=== PATIENT | male | born 1965 | race Caucasian/White ===

== ENCOUNTER 2016-09-13 06:36 | Day surgery (SDC) | payer OTHER ==
[~2016-09-13] VITALS: Ht 167.6 cm; Wt 79.5 kg
[~2016-09-13 06:36] MED LIST: ADDE30TA PO; AMOX400S3 PO; LORTA5 PO; MOTR200T PO; TEMA15 PO; VITA500C PO
[2016-09-13 06:53] VITALS: BP 139/98; PULSE 75; RESP 20; TEMP 98.2; O2SAT 98
[2016-09-13] MEDS ORDERED: SODIUM CHLORIDE 0.9% 1000 ML IV SCH (07:15)
[2016-09-13] MEDS ORDERED: ceFAZolin 2 GM PREMIX 50 ML - implanted port removal IV SCH (07:15)
[2016-09-13 07:44] LABS: APTT (PATIENT) 26.2 SEC (24.3-30.1); INTERNATIONAL NORMALIZED RATIO 0.9 RATIO; PROTHROMBIN TIME - PATIENT 10.3 SEC (9.8-11.6)
[2016-09-13] MEDS ORDERED: MIDAZOLAM HCL 5 MG/5 ML VIAL ONE (08:01)
[2016-09-13] MEDS ORDERED: fentaNYL CITRATE 250 MCG/5 ML AMP ONE (08:02)
[2016-09-13] MEDS ORDERED: LIDOCAINE 1%/EPINEPHrine 1:100,000 SOLN 20 ML VIAL ONE (08:16)
[2016-09-13 08:45] VITALS: BP_SYST 120; BP_SYST 124; BP_DIAS 81; PULSE 81; PULSE 83; RESP 20; TEMP 97.9; O2SAT 95; O2SAT 96
[2016-09-13 09:00] VITALS: BP 124/85; PULSE 83; RESP 20; O2SAT 94
[2016-09-13] MEDS ORDERED: SODIUM CHLORIDE 0.9% FLUSH 5 ML FLUSH IVF PRN ×2 (09:00)
--- NOTE | 2016-09-13 09:01 | PD.RAD ---
Post Procedure Progress Note Pre Procedure Diagnosis: (1) Lymphoma Post Procedure Diagnosis: (1) Lymphoma Procedure Date: Sep 13, 2016 Supervising Radiologist: John Velazco Proceduralist/Assist: Judah Corona RT(R), RT Yassine(R) Anesthesia: Conscious Sedation Plan of Activity Patient to Unit: R[facility] Patient Condition: Good See PACS Report for procedural detail/treatment Central Venous Access Device Procedure 1 Right Internal Jugular Infusaport Removal single lumen John Velazco MD Sep 13, 2016 09:01
--- NOTE | 2016-09-13 09:23 | RADRPT ---
EXAM DATE/TIME: 09/13/2016 07:38 [facility] COMPARISON: No previous studies available for comparison. INDICATIONS : Patient presents with a history of lymphoma and is in need of port removal. MEDICAL HISTORY : Splenomegaly HTN Gout Hemolyric anemia SURGICAL HISTORY : Splenectomy Tonsillectomy Bone marrow biopsy ENCOUNTER: Subsequent ACUITY: 4-6 months PAIN SCORE: 0/10 LOCATION: n/a SEDATION TIME: 30 minutes 1.) 3 mg midazolam (Versed) IV 2.) 150 mcg fentanyl (Sublimaze) IV Prophylactic antibiotics were administered with appropriate pre-procedure timing. Vancomycin within 2 hrs of procedure, Ancef (or alternative) within 1 hr of procedure. PROCEDURE : 1. Removal of Mefjvc-w-[id number]. 2. Conscious sedation with continuous EKG and oximetry monitoring. The risk, benefits and potential complications of [id number]-[id number] removal were discussed. Written conse nt was obtained. The patient was placed supine. The chest wall was prepped in sterile fashion. Full sterile techniqu e was used, including cap, mask, sterile gloves and gown, and a large sterile sheet. Hand hygiene an d 2% chlorhexidine and/or Betadine/alcohol prep was utilized per protocol for cutaneous antisepsis. The skin and subcutaneous tissues were infiltrated with local anesthetic solution. A small incision w as made, the subcutaneous pocket was opened. The port was dissected from the subcutaneous tissues and easily removed in one piece. The pocket incision was closed with subcuticular Vicryl suture. Steri -Strips were applied. Conscious sedation was performed with the prescribed dosages and duration as above. The patient tole rated the procedure well and there were no complications. EKG and oximetry remained stable throughou t the procedure. The patient was sent to post anesthesia recovery in stable condition. CONCLUSION: Uncomplicated port removal as above. John Velazco MD on September 13, 2016 at 9:18 Board Certified Radiologist. This report was verified electronically.
[2016-09-13 09:30] VITALS: BP 117/89; PULSE 74; RESP 20; O2SAT 94
[2016-09-13 10:00] VITALS: BP 113/72; PULSE 76; RESP 20; O2SAT 94
[2016-09-13 10:30] VITALS: BP 110/75; PULSE 73; RESP 20; O2SAT 96
== END 2016-09-13 10:45 | disposition home or self-care (01) ==
LOC: HROP 06:36 → HRIP 06:37 → HROP 10:45
PROVIDERS: ATTEND Internal Medicine Hematology & Oncology
DX: Z46.89 Encounter for fitting and adjustment of other specified devices (principal); Z85.72 Personal history of non-Hodgkin lymphomas
CPT/HCPCS: 36590; 85610; 85730; J0690; J2250; J3010; J7030

== ENCOUNTER 2016-09-24 10:24 | Day surgery (SDC) | payer OTHER ==
[~2016-09-24] VITALS: Ht 167.6 cm; Wt 79.5 kg
[~2016-09-24 10:24] MED LIST changes: -ADDE30TA PO; -AMOX400S3 PO; -LORTA5 PO; -VITA500C PO
[2016-09-24 10:31] VITALS: BP 144/106; PULSE 74; RESP 20; TEMP 98.1; O2SAT 97
[2016-09-24] MEDS ORDERED: ceFAZolin 2 GM PREMIX 50 ML IV ONE (11:00)
[2016-09-24] MEDS ORDERED: fentaNYL CITRATE 250 MCG/5 ML AMP ONE (11:04)
[2016-09-24] MEDS ORDERED: MIDAZOLAM HCL 5 MG/5 ML VIAL ONE (11:04)
[2016-09-24] MEDS ORDERED: LIDOCAINE 1%/EPINEPHrine 1:100,000 SOLN 20 ML VIAL ONE (11:14)
--- NOTE | 2016-09-24 11:46 | PD.RAD ---
Post Procedure Progress Note Pre Procedure Diagnosis: (1) Hematoma of chest wall Post Procedure Diagnosis: (1) Hematoma of chest wall Procedure Date: Sep 24, 2016 Supervising Radiologist: Bobby Lopez JR Proceduralist/Assist: Carmela Denney, RT(R)(CV), Alyse Harrell RT(R)() Anesthesia: Conscious Sedation Plan of Activity Patient to Unit: R[facility]U Patient Condition: Good Additional Comments: Small incision made over port pocket. Evacuation of hematoma performed. No signs of infections. Home with pressure dressing and Keflex See PACS Report for procedural detail/treatment Jr. John,Bobby Cline MD Sep 24, 2016 11:46
[2016-09-24 11:50] VITALS: BP 144/88; PULSE 82; RESP 20; TEMP 97.9; O2SAT 95
[2016-09-24 12:05] VITALS: BP 126/87; PULSE 69; RESP 20; O2SAT 92
[2016-09-24 12:29] VITALS: BP 135/87; PULSE 70; RESP 18; O2SAT 98
[2016-09-24 12:59] VITALS: BP 129/72; PULSE 70; RESP 17; O2SAT 97
--- NOTE | 2016-09-24 14:05 | RADRPT ---
EXAM DATE/TIME: 09/24/2016 10:52 [facility] COMPARISON: No previous studies available for comparison. INDICATIONS : Patient presents with subcutaneous hematoma of port pocket post port removal in need of incision and drainage. Patient denies fever and chills. MEDICAL HISTORY : History of lymphoma, splenomegaly, HTN, gout, hemolytic anemia. SURGICAL HISTORY : History of port insertion and removal, bone marrow biopsy, splenectomy, tonsillectomy. ENCOUNTER: Subsequent ACUITY: 2 weeks PAIN SCORE: 0/10 SEDATION TIME: 30 minutes MEDICATION(S): 1.) 3 mg midazolam (Versed) IV 2.) 150 mcg fentanyl (Sublimaze) IV Vancomycin within 2 hrs of procedure, Ancef (or alternative) within 1 hr of procedure. PROCEDURE : 1. hematoma drainage. The risks, benefits and alternatives to the procedure were explained and verbal and written consent w as obtained. The site was prepped in sterile fashion. Full sterile technique was used, including ca p, mask, sterile gloves and gown and a large sterile sheet. Hand hygiene and 2% chlorhexidine and/or betadine/alcohol prep was utilized per protocol for cutaneous antisepsis. The skin and subcutaneous tissues were infiltrated with local anesthetic solution. Very small skin incision was made with an 11 blade scalpel involving the lateral aspect of the incisi on for port removal. Sanguinous fluid consistent with old hematoma drained from the pocket. Compressi on was utilized to totally decompress the hematoma. No acute blood noted. No signs of infection. A co mpression dressing was placed. The patient was instructed to change the dressing daily next 5-7 days with placement of a compression dressing each day. Antibiotics were prescribed prophylactically. CONCLUSION: Uncomplicated port pocket hematoma drainage. No signs of infection. Bobby Lopez Jr., MD on September 24, 2016 at 14:01 Board Certified Radiologist. This report was verified electronically.
== END 2016-09-24 13:30 | disposition home or self-care (01) ==
LOC: HRAD 10:24 → HRIP 10:27 → HRAD 13:30
PROVIDERS: ATTEND Radiology Body Imaging
DX: S20.219A Contusion of unspecified front wall of thorax, initial encounter (principal); I10 Essential (primary) hypertension; M10.9 Gout, unspecified; Z85.72 Personal history of non-Hodgkin lymphomas
CPT/HCPCS: 99212; J0690; J2250; J3010; G0463

== ENCOUNTER 2016-09-28 09:59 | Day surgery (SDC) | payer OTHER ==
--- NOTE | 2016-09-28 16:22 | RADRPT ---
EXAM DATE/TIME: 09/28/2016 10:00 [facility] COMPARISON : No previous studies available for comparison. INDICATIONS : Non-Hodgkin's lymphoma. Hematoma following port removal. OBJECTIVE: The patient is feeling well with no constitutional symptoms. No pain, fevers chills or other signs of ongoing infection. HISTORY OF PRESENT ILLNESS: The patient underwent port removal on September 13. The removal was complicated by development of a lar ge delayed hematoma. The patient returned on September 24 and underwent incision and drainage of the he matoma. He was started on antibiotics at that time as a precautionary measure. He returns today for f [facility] PAST MEDICAL HISTORY : Non-Hodgkin's lymphoma PHYSICAL EXAMINATION: The port site is notable for minimal residual bruising and hematoma. No signs o f infection. ASSESSMENT: Patient doing well following port removal complicated by hematoma necessitating incision and drainage . PLAN: Followup as needed with Dr. Sanchez. Ananda Horne MD Board Certified Radiologist. This report was verified electronically.
== END 2016-09-28 10:15 | disposition home or self-care (01) ==
LOC: HROP 09:59 → HRIP 10:03 → HROP 10:15
PROVIDERS: ATTEND Radiology Body Imaging
DX: Z45.2 Encounter for adjustment and management of vascular access device (principal); C85.10 Unspecified B-cell lymphoma, unspecified site
CPT/HCPCS: 99211; G0463